=== PATIENT | female | born 1955 | race Caucasian/White ===

== ENCOUNTER 2016-12-17 01:26 | Emergency (ER) | payer OTHER ==
[2016-12-17 04:04] VITALS: BP 144/77
== END 2016-12-17 03:05 | disposition home or self-care (01) ==
LOC: ED 01:26
DX: S40.022A Contusion of left upper arm, initial encounter (principal); W17.89XA Other fall from one level to another, initial encounter; Y93.89 Activity, other specified; Y99.8 Other external cause status; Y92.89 Other specified places as the place of occurrence of the external cause
CPT/HCPCS: J3010; Q0092

== ENCOUNTER 2017-04-04 19:56 | Emergency (ER) | payer OTHER ==
[2017-04-04 20:00] VITALS: BP 136/63
== END 2017-04-04 21:23 | disposition left against medical advice (07) ==
LOC: ED 19:56
DX: Z53.21 Procedure and treatment not carried out due to patient leaving prior to being seen by health care provider (principal)

== ENCOUNTER 2017-04-13 04:57 | Emergency (ER) | payer OTHER ==
[2017-04-13 05:58] VITALS: BP 128/73
== END 2017-04-13 07:00 | disposition left against medical advice (07) ==
LOC: ED 04:57
DX: M25.512 Pain in left shoulder (principal)
CPT/HCPCS: Q0092

== ENCOUNTER 2017-06-25 04:01 | Emergency (ER) | payer OTHER ==
[~2017-06-25] VITALS: Ht 160 cm; Wt 81.6 kg
[2017-06-25 04:08] VITALS: Ht 160 cm; Wt 81.6 kg
[2017-06-25 05:47] VITALS: BP 113/65
[2017-06-25 06:52] LABS: AMPHETAMINE QUAL UR POSITIVE (NEG <=1000)
== END 2017-06-25 06:28 | disposition left against medical advice (07) ==
LOC: ED 04:01
PROVIDERS: Emergency Medicine
DX: S09.90XA Unspecified injury of head, initial encounter (principal); F15.10 Other stimulant abuse, uncomplicated; X58.XXXA Exposure to other specified factors, initial encounter; Y93.89 Activity, other specified; Y99.8 Other external cause status; Y92.89 Other specified places as the place of occurrence of the external cause